=== PATIENT | male | born 1985 | race Caucasian/White ===

== ENCOUNTER 2017-11-04 10:55 | Emergency (ER) | payer OTHER ==
[~2017-11-04] VITALS: Ht 180.3 cm; Wt 72.6 kg
--- NOTE | 2017-11-04 11:05 | NUR ---
PATIENT WAS MSE BY DR BARDALES IN ROOM 05A.
[2017-11-04] MEDS ORDERED: LORAZEPAM 1 MG TABLET ONE (11:12)
[2017-11-04] MEDS: LORAZEPAM 0.5 MG TABLET PO ONE (11:18)
--- NOTE | 2017-11-04 11:18 | NUR ---
Medication given as ordered. Precautions about Ativan given. Patient states she will nopt drive or use alcohol while on ativan.
--- NOTE | 2017-11-04 11:24 | NUR ---
DC, RX (INCLUDING ALL PRECAUTIONS) AND FOLLOW UP INSTRUCTIONS GIVEN AND EXPLAINED TO PATIENT WHO STATES HE UNDERSTANDS ALL INSTRUCTIONS
== END 2017-11-04 11:40 | disposition home or self-care (01) ==
LOC: ER 10:55
DX: F41.0 Panic disorder [episodic paroxysmal anxiety] (principal); F43.0 Acute stress reaction
CPT/HCPCS: 93005; A4663